=== PATIENT | female | born 1955 | race American Indian/Alaskan Native ===

== ENCOUNTER 2020-04-08 19:26 | Emergency (ER) | payer SELFPAY ==
[2020-04-08 20:27] VITALS: BP 148/84
[2020-04-08] MEDS ORDERED: ACETAMINOPHEN 325 MG TAB PO ONE (20:30)
[2020-04-08] MEDS ORDERED: NEOMY 3.5 MG/BACIT 400 UNITS/POLY B 5000 UNITS/GM OINT PACKET TP ONE (20:30)
[2020-04-08] MEDS ORDERED: SODIUM CHLORIDE 0.9% IRR 500 ML BOTTLE IR ONE (20:30)
[2020-04-08] MEDS ORDERED: LIDOCAINE (1%) 10 MG/1 ML VIAL 20 ML MDV INFILTRATI ONE (20:30)
--- NOTE | 2020-04-08 20:30 | Event Note ---
ED Screening Note ED Screening Note: lac to forehead hit on trunk door no loc needs tdap This initial assessment/diagnostic orders/clinical plan/treatment(s) is/are subject to change based on patients health status, clinical progression and re- assessment by fellow clinical providers in the ED. Further treatment and workup at subsequent clinical providers discretion. Patient/guardian urged not to elope from the ED as their condition may be serious if not clinically assessed and managed. Initial orders include: lac repair
[2020-04-08] MEDS ORDERED: TETANUS,DIPHTHERIA TOXOID ADULT 0.5 ML INJ IM ONE (20:31)
[2020-04-08] MEDS ORDERED: DIPHtheria,PERTUSSIS(ACELL),TETANUS VACCINE/PF 0.5 ML VIAL IM ONE (21:30)
[2020-04-09] MEDS ORDERED: HYDROcodone/ACETAMINOPHEN 5-325 MG TAB PO ONE (00:23)
[2020-04-09] MEDS ORDERED: DIPHtheria,PERTUSSIS(ACELL),TETANUS VACCINE/PF 0.5 ML VIAL IM ONE (00:23)
--- NOTE | 2020-04-09 00:56 | Emergency Department Report ---
- General Chief Complaint: Wound/Laceration Stated Complaint: HEAD LAC Time Seen by Provider: 04/08/20 20:29 Source: patient Mode of arrival: Ambulatory Limitations: No Limitations - History of Present Illness Initial Comments: Patient is a 64-year-old female presents emergency room with complaints of a laceration to the forehead that occurred around 7 PM tonight. She states that she opened her trunk to her car. She states that she turned and hit her head against the edge of the trunk which caused a laceration. She denies any loss of consciousness, vomiting, numbness, weakness, bowel or bladder incontinence, vision changes, gait disturbance, headache. She states that she does has pain around the laceration site. She is unsure of her last tetanus immunization. She denies being on blood thinners. No past medical history. No allergies to medications. - Related Data Previous Rx's Medication Instructions Recorded Last Taken Type cephALEXin [Keflex] 500 mg PO QID 7 Days #28 cap 04/09/20 Unknown Rx Allergies Allergy/AdvReac Type Severity Reaction Status Date / Time No Known Allergies Allergy Unverified 04/08/20 20:27 ED Review of Systems ROS: Stated complaint: HEAD LAC Other details as noted in HPI Comment: All other systems reviewed and negative ED Past Medical Hx - Past Medical History Previous Medical History?: Yes Hx Asthma: Yes - Surgical History Past Surgical History?: Yes Additional Surgical History: Right shoulder surgery. - Social History Smoking Status: Never Smoker Substance Use Type: None - Medications Home Medications: Home Medications Medication Instructions Recorded Confirmed Last Taken Type cephALEXin [Keflex] 500 mg PO QID 7 Days #28 cap 04/09/20 Unknown Rx ED Physical Exam - General Limitations: No Limitations General appearance: alert, in no apparent distress - Head Head exam: Present: other (5 cm v-shape laceration present to the right forehead, no foreign body, no muscle involvement) - Eye Eye exam: Present: normal appearance, PERRL, EOMI, other (no racoon eyes). Absent: periorbital swelling, periorbital tenderness Pupils: Present: normal accommodation - ENT ENT exam: Present: mucous membranes moist, other (no martinez signs ) - Neurological Exam Neurological exam: Present: alert, oriented X3, CN II-XII intact, normal gait. Absent: motor sensory deficit - Psychiatric Psychiatric exam: Present: normal affect, normal mood - Skin Skin exam: Present: warm, dry ED Course Vital Signs 04/08/20 04/09/20 20:24 02:10 Temperature 98.3 F Pulse Rate 73 84 Respiratory 16 16 Rate Blood Pressure 148/84 O2 Sat by Pulse 96 100 Oximetry - Laceration /Wound Repair Left Face Wound Location: face (right forehead) Wound Length (cm): 5 Wound's Depth, Shape: irregular Wound Explored: clean Irrigated w/ Saline (ccs): 100 Betadine Prep?: Yes Anesthesia: 1% Lidocaine Volume Anesthetic (ccs): 10 Wound Debrided: extensive Wound Repaired With: sutures, Steri-strips, Dermabond Suture Size/Type: 4:0 Number of Sutures: 1 (1 running vicryl stitch) Layer Closure?: No Sterile Dressing Applied?: Yes Progress: Wound irrigated with saline and thoroughly scrubbed with Betadine, no muscle involvement, no foreign body, 10 cc of 1% lidocaine without epinephrine used as anesthetic, Betadine prep again, sterile drapes applied, 4-0 Vicryl used for closure, one running subcuticular stitch placed with good skin approximation, multiple layers of Dermabond placed, Steri-Strips applied, patient tolerated well, no complications, bleeding controlled, sterile dressing applied ED Medical Decision Making - Medical Decision Making Patient is a 64-year-old female presents emergency room with complaints of a laceration to the forehead that occurred around 7 PM tonight. She states that she opened her trunk to her car. She states that she turned and hit her head against the edge of the trunk which caused a laceration. She denies any loss of consciousness, vomiting, numbness, weakness, bowel or bladder incontinence, vision changes, gait disturbance, headache. She states that she does has pain around the laceration site. She is unsure of her last tetanus immunization. She denies being on blood thinners. No past medical history. No allergies to medications. vss. on exam: 5 cm v-shape laceration present to the right forehead, no foreign body, no muscle involvement. Wound repaired per procedure note. Patient given pain medication as she did not drive and given Tdap. Patient given prescription for Keflex. Advised patient May take Tylenol over the counter as needed for discomfort. Please take medication as prescribed. Please keep area clean, dry, covered. Please keep current Steri-Strips in place for 2 days and do not get the area wet for 2 days. After 2 days may wash with soap and water and immediately dry. No hot tub, no pool, no soaking in water. Follow-up with a primary care doctor for reexamination. Return to emergency room immediately for any new or worsening symptoms or any signs of infection. Please return to emergency room immediately if you began experiencing headache, vision changes, vomiting, loss of consciousness, numbness, weakness, unable to control bowel or bladder function, etc. Critical care attestation.: If time is entered above; I have spent that time in minutes in the direct care of this critically ill patient, excluding procedure time. ED Disposition Clinical Impression: Forehead laceration Qualifiers: Encounter type: initial encounter Qualified Code(s): S01.81XA - Laceration without foreign body of other part of head, initial encounter Disposition: TO HOME OR SELFCARE Is pt being admited?: No Does the pt Need Aspirin: No Condition: Stable Instructions: Laceration (ED), Skin Adhesive Care (ED), Absorbable Suture Care (ED) Additional Instructions: May take Tylenol over the counter as needed for discomfort. Please take medication as prescribed. Please keep area clean, dry, covered. Please keep current Steri-Strips in place for 2 days and do not get the area wet for 2 days. After 2 days may wash with soap and water and immediately dry. No hot tub, no pool, no soaking in water. Follow-up with a primary care doctor for reexamination. Return to emergency room immediately for any new or worsening symptoms or any signs of infection. Please return to emergency room immediately if you began experiencing headache, vision changes, vomiting, loss of consciousness, numbness, weakness, unable to control bowel or bladder function, etc. Prescriptions: cephALEXin [Keflex] 500 mg PO QID 7 Days #28 cap Referrals: JANE NEGRETE MD [Staff Physician] - 2-3 Days [facility] [Provider Group] - 2-3 Days [facility] [Outside] - 2-3 Days Time of Disposition: 01:56 Print Language: NAURUAN
[2020-04-09] MEDS ORDERED: LIDOCAINE-MPF (1%) 10 MG/1 ML VIAL 5 ML ONE (01:22)
== END 2020-04-09 02:10 | disposition home or self-care (01) ==
LOC: ED 19:26
DX: S01.81XA Laceration without foreign body of other part of head, initial encounter (principal); J45.909 Unspecified asthma, uncomplicated; Z98.890 Other specified postprocedural states; X58.XXXA Exposure to other specified factors, initial encounter; Y93.89 Activity, other specified; Y92.89 Other specified places as the place of occurrence of the external cause; Y99.8 Other external cause status
CPT/HCPCS: 90471; 90715; 99282

== ENCOUNTER 2021-04-24 00:20 | Emergency (ER) | payer MEDICARE ==
[2021-04-24 05:13] VITALS: BP 165/80
--- NOTE | 2021-04-24 10:20 | Emergency Department Report ---
ED Back Pain/Injury HPI - General Chief Complaint: Back Pain/Injury Stated Complaint: LOWER BACK PAIN Time Seen by Provider: 04/24/21 10:06 Source: patient Limitations: No Limitations - History of Present Illness Initial Comments: There is a very pleasant 65-year-old female with a past medical history of asthma who presents the emergency department the chief complaint of lower back pain. Patient reports she has had pain in the right side of her lower back rating into the right buttocks that has been present over the past week. She denies any saddle anesthesia, urinary or bowel incontinence, urinary retention, fever, chills, night sweats, headache, dizziness, blurry vision, chest pain, shortness of breath, weakness or any other associated symptoms. She reports the pain is aggravated by movement specifically getting up from a seated position and is slightly alleviated when lying flat. She denies any specific injuries. She denies any previous back surgeries. She denies any current medication use or known allergies to medications. Previous surgeries include a right shoulder rotator cuff repair. She denies IV drug use. - Related Data Previous Rx's Medication Instructions Recorded Last Taken Type cephALEXin [Keflex] 500 mg PO QID 7 Days #28 cap 04/09/20 Unknown Rx methOCARBAMOL [Robaxin TAB] 500 mg PO Q6HR #16 tablet 04/24/21 Unknown Rx methylPREDNISolone [Medrol 4MG 4 mg PO ONCE #1 tab.ds.pk 04/24/21 Unknown Rx DOSEPAK (21 tabs)] traMADoL [Ultram 50 MG tab] 50 mg PO Q6HR PRN #12 tablet 04/24/21 Unknown Rx Allergies Allergy/AdvReac Type Severity Reaction Status Date / Time No Known Allergies Allergy Unverified 04/08/20 20:27 ED Review of Systems ROS: Stated complaint: LOWER BACK PAIN Other details as noted in HPI Comment: All other systems reviewed and negative Constitutional: denies: chills, fever Eyes: denies: eye pain, eye discharge, vision change ENT: denies: ear pain, throat pain Respiratory: denies: cough, shortness of breath, wheezing Cardiovascular: denies: chest pain, palpitations Endocrine: no symptoms reported Gastrointestinal: denies: abdominal pain, nausea, diarrhea Genitourinary: denies: urgency, dysuria, discharge Musculoskeletal: as per HPI, back pain. denies: joint swelling, arthralgia Skin: denies: rash, lesions Neurological: denies: headache, weakness, paresthesias Psychiatric: denies: anxiety, depression Hematological/Lymphatic: denies: easy bleeding, easy bruising ED Past Medical Hx - Past Medical History Previous Medical History?: Yes Hx Asthma: Yes - Surgical History Past Surgical History?: Yes Additional Surgical History: Right shoulder surgery. - Family History Family history: no significant - Social History Smoking Status: Never Smoker Substance Use Type: None - Medications Home Medications: Home Medications Medication Instructions Recorded Confirmed Last Taken Type cephALEXin [Keflex] 500 mg PO QID 7 Days #28 cap 04/09/20 Unknown Rx methOCARBAMOL [Robaxin TAB] 500 mg PO Q6HR #16 tablet 04/24/21 Unknown Rx methylPREDNISolone [Medrol 4MG 4 mg PO ONCE #1 tab.ds.pk 04/24/21 Unknown Rx DOSEPAK (21 tabs)] traMADoL [Ultram 50 MG tab] 50 mg PO Q6HR PRN #12 tablet 04/24/21 Unknown Rx ED Physical Exam - General Limitations: No Limitations General appearance: alert, in no apparent distress - Head Head exam: Present: atraumatic, normocephalic - Eye Eye exam: Present: normal appearance, PERRL, EOMI Pupils: Present: normal accommodation - ENT ENT exam: Present: normal exam, normal orophraynx, mucous membranes moist, normal external ear exam - Neck Neck exam: Present: normal inspection, full ROM. Absent: tenderness, meningismus - Respiratory Respiratory exam: Present: normal lung sounds bilaterally. Absent: respiratory distress, wheezes, rales, rhonchi, stridor, chest wall tenderness - Cardiovascular Cardiovascular Exam: Present: regular rate, normal rhythm, normal heart sounds. Absent: systolic murmur, diastolic murmur, rubs, gallop - GI/Abdominal GI/Abdominal exam: Present: soft, normal bowel sounds. Absent: distended, tenderness, guarding, rebound, rigid, pulsatile mass - Extremities Exam Extremities exam: Present: normal inspection, full ROM, normal capillary refill, other (Normal bilateral pedal pulses. No posterior calf tenderness bilaterally.). Absent: tenderness, calf tenderness (No lower extremity edema, negative Homans' sign bilaterally.) - Back Exam Back exam: Present: normal inspection, full ROM, tenderness (Mild tenderness to the right upper gluteal region, no midline tenderness of the cervical, thoracic or lumbar spine. No CVA tenderness bilaterally.), paraspinal tenderness, other (Negative straight leg raise bilaterally.). Absent: CVA tenderness (R), CVA tenderness (L), vertebral tenderness - Neurological Exam Neurological exam: Present: alert, oriented X3, CN II-XII intact, normal gait, reflexes normal (Normal deep tendon reflexes to the bilateral patella 2+ Achilles 2+) - Psychiatric Psychiatric exam: Present: normal affect, normal mood - Skin Skin exam: Present: warm, dry, intact, normal color. Absent: rash ED Course Vital Signs 04/24/21 05:07 Temperature 98.4 F Pulse Rate 69 Respiratory 20 Rate Blood Pressure 165/80 O2 Sat by Pulse 97 Oximetry ED Medical Decision Making - Medical Decision Making Patient is nontoxic in no acute distress. Vital signs are stable other than her blood pressure is slightly elevated. She had a negative straight leg raise bilaterally and no neurologic signs on her exam. She was ambulatory with a steady gait. She had no fever or history of IV drug use making my suspicion for spinal epidural abscess unlikely. She had no injury or focal neurologic deficits making my suspicion for spinal epidural hematoma low at this time. She had no saddle anesthesia, urinary or bowel incontinence, urinary retention, significant weakness or any other symptoms to suggest cauda equina syndrome or conus medullaris syndrome. I will treat the patient with steroids, tramadol and muscle relaxers and recommend outpatient follow-up with orthopedic surgery. She was instructed to return to the emergency department she develops any of the symptoms above. She verbalized understand these instructions and all of her questions were answered. - Differential Diagnosis Strain, HNP, spasm Critical care attestation.: If time is entered above; I have spent that time in minutes in the direct care of this critically ill patient, excluding procedure time. ED Disposition Clinical Impression: Acute lumbosacral myofascial strain Qualifiers: Encounter type: initial encounter Qualified Code(s): S39.012A - Strain of muscle, fascia and tendon of lower back, initial encounter Disposition: HOME / SELF CARE / HOMELESS Is pt being admited?: No Condition: Stable Instructions: Lumbosacral Strain Prescriptions: methylPREDNISolone [Medrol 4MG DOSEPAK (21 tabs)] 4 mg PO ONCE #1 tab.ds.pk methOCARBAMOL [Robaxin TAB] 500 mg PO Q6HR #16 tablet traMADoL [Ultram 50 MG tab] 50 mg PO Q6HR PRN #12 tablet PRN Reason: Pain Referrals: PRIMARY CARE,MD [Primary Care Provider] - 3-5 Days [facility] [Provider Group] - 3-5 Days Time of Disposition: 10:20
== END 2021-04-24 10:40 | disposition home or self-care (01) ==
LOC: ED 00:20
DX: S39.012A Strain of muscle, fascia and tendon of lower back, initial encounter (principal); J45.909 Unspecified asthma, uncomplicated; Z79.899 Other long term (current) drug therapy; Z98.890 Other specified postprocedural states; X58.XXXA Exposure to other specified factors, initial encounter; Y93.89 Activity, other specified; Y92.89 Other specified places as the place of occurrence of the external cause; Y99.8 Other external cause status
CPT/HCPCS: 99282